=== PATIENT | male | born 1965 | race Native Hawaiian/Other Pacific Islander ===

== ENCOUNTER 2017-04-22 12:20 | Emergency (ER) | payer BC ==
[~2017-04-22] VITALS: Ht 175.3 cm; Wt 98.9 kg
[2017-04-22 14:07] LABS: PLATELET COUNT 192 K/uL (142-355)
[2017-04-22 14:16] LABS: POTASSIUM 3.6 mmol/L (3.6-5.2); SODIUM 137 mmol/L (136-145)
[2017-04-22 19:46] VITALS: BP 137/74; TEMP 99.2
== END 2017-04-22 19:48 | disposition home or self-care (01) ==
LOC: ED 12:20
PROVIDERS: Emergency Medicine
DX: K52.89 Other specified noninfective gastroenteritis and colitis (principal); N20.0 Calculus of kidney
CPT/HCPCS: 36415; 80053; 80307; 81000; 82150; 82550; 83690; 84484; 85027; 93005; 96365; 96372; 96374; 96375; 99284; G0479; J0500; J1885; J2405